=== PATIENT | male | born 2000 | race African-American/Black ===

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

== ENCOUNTER 2020-02-26 21:07 | Emergency (ER) | payer OTHER ==
[2020-02-26 22:32] LABS: ALT (SGPT) 29 U/L (8-55); AST (SGOT) 39 U/L (10-45); Albumin 3.9 g/dL (3.5-5.0); Alkaline Phosphatase 121 U/L (50-130); Anion Gap 16 mmol/L (10-20); BUN (Urea Nitrogen) 10 mg/dL (8.4-21.0); Bilirubin, Total 0.4 mg/dL (0.2-1.2); CK (CPK) 344 U/L (30-200); Calc. Creatinine Clearance 0 mL/min (70-130); Calcium 9.5 mg/dL (7.8-10.44); Carbon Dioxide 24 mmol/L (22-29); Chloride 102 mmol/L (98-107); Estimated GFR-MDRD 90; Globulin 4.3 g/dL (2.4-3.5); Glucose 98 mg/dL (70-105); Potassium 5.3 mmol/L (3.5-5.1); Protein, Total 8.2 g/dL (6.0-8.3); Sodium 137 mmol/L (136-145)
[2020-02-26 23:36] LABS: #Basophils 0.1 thou/uL (0.0-0.2); #Eosinphils 0.3 thou/uL (0.0-0.7); #Lymphocytes 2.2 thou/uL (1.20-3.40); #Monocytes 0.6 thou/uL (0.11-0.59); #Neutrophils 5.1 thou/uL (1.40-6.50); %Basophils 0.7 % (0.0-1.0); %Eosinophils 3.9 % (0.0-10.0); %Lymphocytes 26.5 % (28.0-48.0); Hemoglobin 12.5 g/dL (14.0-18.0); Mean Corpuscular HGB CONC 31.8 g/dL (32.0-36.0); Mean Corpuscular Hemoglobin 25.4 pg (25.0-35.0); Mean Corpuscular Volume 79.9 fL (78.0-98.0); Mean Platelet Volume 8.2 fL (7.4-10.4); Platelet Count 232 thou/uL (130-400); RBC Distribution Width 13.2 % (11.5-14.5); Red Blood Cell (RBC) Count 4.93 mill/uL (4.00-5.20); White Blood Cell (WBC) Count 8.2 thou/uL (4.8-10.8)
--- NOTE | 2020-02-26 23:41 | RAD ---
EXAM: CHEST ONE VIEW HISTORY: Chest pain. COMPARISON: 03/20/2013 FINDINGS: The cardiac silhouette and pulmonary vasculature is within normal limits. Lungs are clear. Patchy par enchymal densities within the right lung on prior exam are not seen on the current study. The osseous structures are intact. IMPRESSION: No acute cardiopulmonary process.
== END 2020-02-27 00:08 | disposition home or self-care (01) ==
LOC: ERS 21:07
DX: R07.89 Other chest pain (principal); E66.9 Obesity, unspecified; I10 Essential (primary) hypertension; E03.9 Hypothyroidism, unspecified; E11.9 Type 2 diabetes mellitus without complications; F90.9 Attention-deficit hyperactivity disorder, unspecified type; Z79.899 Other long term (current) drug therapy; Z79.84 Long term (current) use of oral hypoglycemic drugs
CPT/HCPCS: 71045; 80053; 82550; 84484; 85025; 93005

== ENCOUNTER 2020-03-22 23:10 | Observation (INO) | payer OTHER ==
[2020-03-22 23:49] LABS: #Eosinphils 0.4 thou/uL (0.0-0.7); #Lymphocytes 3.1 thou/uL (1.20-3.40); #Monocytes 0.6 thou/uL (0.11-0.59); #Neutrophils 5.7 thou/uL (1.40-6.50); %Basophils 0.5 % (0.0-1.0); %Eosinophils 4.5 % (0.0-10.0); %Lymphocytes 31.7 % (28.0-48.0); %Monocytes 5.8 % (0.0-4.0); %Neutrophils 57.7 % (31.0-61.0); Hemoglobin 13.5 g/dL (14.0-18.0); Mean Corpuscular Hemoglobin 24.4 pg (25.0-35.0); Mean Corpuscular Volume 78.5 fL (78.0-98.0); Platelet Count 251 thou/uL (130-400); RBC Distribution Width 13.4 % (11.5-14.5); Red Blood Cell (RBC) Count 5.53 mill/uL (4.00-5.20); White Blood Cell (WBC) Count 9.8 thou/uL (4.8-10.8)
[2020-03-22 23:50] LABS: Bilirubin Negative (Negative); Blood, Urine Negative (Negative); Clarity Clear (Clear); Glucose, Urine (Dipstick) Normal (Negative); Ketone, Urine Negative (Negative); Leukocyte Negative Leu/uL (Negative); Nitrite Negative (Negative); Protein, Urine (Dipstick) Negative (Neg-Trace); Specific Gravity, Urine 1.031 (1.002-1.036); Urobilinogen Normal mg/dL (Less than 2); pH, Urine 5.5 (5.0-9.0)
[2020-03-22 23:57] LABS: Amphetamine Detected (NotDetected); Barbiturates Screen Not Detected (NotDetected); Benzodiazepine Screen Not Detected (NotDetected); Cocaine Metabolite Screen Not Detected (NotDetected); Medtox Control Line Valid? VALID (VALID); Medtox Reader # READER 4; Methadone Not Detected (NotDetected); Methamphetamine Not Detected (NotDetected); Opiate Screen Not Detected (NotDetected); Oxycodone Screen Not Detected (NotDetected); Phencyclidine (PCP) Not Detected (NotDetected); THC/Cannabinoid Screen Not Detected (NotDetected); Tricyclic Screen Detected (NotDetected)
[2020-03-23 00:13] LABS: ALT (SGPT) 30 U/L (8-55); AST (SGOT) 25 U/L (5-34); Albumin 4.3 g/dL (3.5-5.0); Alkaline Phosphatase 156 U/L (50-130); Anion Gap 16 mmol/L (10-20); BUN (Urea Nitrogen) 14 mg/dL (8.9-20.6); Bilirubin, Total 0.4 mg/dL (0.2-1.2); CK (CPK) 296 U/L (30-200); Calc. Creatinine Clearance 0 mL/min (70-130); Calcium 10.4 mg/dL (7.8-10.44); Carbon Dioxide 26 mmol/L (22-29); Chloride 98 mmol/L (98-107); Estimated GFR-MDRD Greater than 90; Globulin 4.3 g/dL (2.4-3.5); Glucose 132 mg/dL (70-105); Potassium 3.5 mmol/L (3.5-5.1); Protein, Total 8.6 g/dL (6.0-8.3); Sodium 136 mmol/L (136-145)
[2020-03-23 01:01] LABS: Acetaminophen Less than 6.0 mcg/mL (10.0-30.0); Alcohol Less than 10 mg/dL (Less than 10); Salicylate Less than 8.0 mg/dL (15.0-30.0)
[2020-03-23] MEDS ORDERED: Ondansetron PF 4 MG/2 ML Vial IVP PRN (07:07)
[2020-03-23] MEDS ORDERED: Acetaminophen 325 MG TAB PO PRN (07:07)
[2020-03-23] MEDS ORDERED: Ondansetron ODT 4 MG TAB PO PRN (07:07)
[2020-03-23] MEDS ORDERED: HumaLOG 300 UNITS/3 ML VIAL SC PRN ×2 (07:10)
[2020-03-23] MEDS ORDERED: Dextrose 5% in Water 1,000 ML IV PRN (07:10)
[2020-03-23] MEDS ORDERED: Dextrose 50% Abboject 50 ML SYRINGE SLOW IVP PRN (07:10)
[2020-03-23] MEDS ORDERED: Labetalol HCl 100 MG/20 ML VIAL SLOW IVP PRN (07:12)
[2020-03-23 07:57] LABS: Hemoglobin A1c 6.3 % (4.0-6.0)
--- NOTE | 2020-03-23 08:27 | PDOC.FPRHP ---
- History of Present Illness Chief Complaint: accidental overdose History of Present Illness: Pt is a 20yo M with a PMH of pre diabetes, hypothyrdoism, ADHD, high blood pressure, and Prader Willi Syndrome who presents after accidental overdose. Patient's mom states last night around 1030 pm she went outside to put out the trash. Patient locked the door to the house and preceded to take some of his home medications: Vyvanse (5 tablets), Metformin (? # tablets), HcTz (? # tablets), Levothyroxine (20 tablets). Patient states he wasn't trying to hurt himself. He endorses mild abdominal pain but no other symptoms. Denies ever doing this in the past. - Allergies/Adverse Reactions Allergies Allergy/AdvReac Type Severity Reaction Status Date / Time No Known Allergies Allergy Verified 11/15/19 02:32 - Home Medications Medication Instructions Recorded Confirmed Type Levothyroxine Sodium [Synthroid] 100 mcg PO DAILY 03/16/13 05/29/16 History Lisdexamfetamine Dimesylate 70 mg PO DAILY 05/29/16 05/29/16 History [Vyvanse] QUEtiapine Fumarate [SEROquel XR] 200 mg PO HS 05/29/16 05/29/16 History - History PMHx: hypothyrdoism, prediabetic, Prader Willi, hypertension PSHx: surgery to fix undescended testicles bilaterally at 1year old, "abdominal surgery" in 2011 as per mom for sticking a nail in stomach FHx: non contributory. Dad has hx of diabetes Social: lives at home with parents. Denies drugs, alcohol, tobacco use. - Review of Systems General: denies: fever/chills, fatigue Eyes: denies: vision changes Respiratory: denies: cough, shortness of breath Cardiovascular: denies: chest pain, palpitation, edema Gastrointestinal: reports: abdominal pain. denies: nausea, vomiting, diarrhea Genitourinary: denies: dysuria Skin: denies: rashes, jaundice Musculoskeletal: denies: pain, tenderness Neurological: reports: other (fidgety/restless). denies: numbness, syncope, seizure, weakness Psychological: denies: anxiety, depression - Vital signs BP: 104/80 HR: 122 RR:20 Tmax: 99.1 Pox: 98% on RA Wt: 163.112kg - Physical Exam Constitutional: NAD, awake, alert and oriented HEENT: normocephalic and atraumatic, PERRLA, EOMI, no scleral icterus, grossly normal hearing, MMM Neck: supple Chest: no-tender to palpation Heart: normal S1/S2, pulses present -Heart: tachycardic Lungs: CTAB, no respiratory distress, good air movement Abdomen: soft, non-tender, bowel sounds present Musculoskeletal: normal tone, ROM grossly normal Neurological: no focal deficit, normal sensation -Neurological: patient is very fidgety. Repetitive motions of hands and feet, turning of head and smacking of lips. Skin: no rash/lesions, good turgor Heme/Lymphatic: no unusual bruising or bleeding Psychiatric: normal mood and affect, good judgment and insight, intact recent and remote memory FMR H&P: Results - Labs Result Diagrams: 03/22/20 23:39 03/22/20 23:39 Lab results: WBC 9.8 thou/uL (4.8-10.8) 03/22/20 23:39 Hgb 13.5 g/dL (14.0-18.0) L 03/22/20 23:39 Hct 43.4 % (42.0-52.0) 03/22/20 23:39 MCV 78.5 fL (78.0-98.0) 03/22/20 23:39 Plt Count 251 thou/uL (130-400) 03/22/20 23:39 Neutrophils % 57.7 % (31.0-61.0) 03/22/20 23:39 Sodium 136 mmol/L (136-145) 03/22/20 23:39 Potassium 3.5 mmol/L (3.5-5.1) 03/22/20 23:39 Chloride 98 mmol/L (98-107) 03/22/20 23:39 Carbon Dioxide 26 mmol/L (22-29) 03/22/20 23:39 BUN 14 mg/dL (8.9-20.6) 03/22/20 23:39 Creatinine 0.87 mg/dL (0.7-1.3) 03/22/20 23:39 Glucose 132 mg/dL (70-105) H 03/22/20 23:39 Lactic Acid 1.9 mmol/L (0.5-2.2) 03/23/20 00:22 Calcium 10.4 mg/dL (7.8-10.44) 03/22/20 23:39 Total Bilirubin 0.4 mg/dL (0.2-1.2) 03/22/20 23:39 AST 25 U/L (5-34) 03/22/20 23:39 ALT 30 U/L (8-55) 03/22/20 23:39 Alkaline Phosphatase 156 U/L (50-130) H 03/22/20 23:39 Creatine Kinase 296 U/L (30-200) H 03/22/20 23:39 Serum Total Protein 8.6 g/dL (6.0-8.3) H 03/22/20 23:39 Albumin 4.3 g/dL (3.5-5.0) 03/22/20 23:39 Urine Ketones Negative mg/dL (Negative) 03/22/20 23:27 Urine Blood Negative (Negative) 03/22/20 23:27 Urine Nitrite Negative (Negative) 03/22/20 23:27 Ur Leukocyte Esterase Negative Haritha/uL (Negative) 03/22/20 23:27 - EKG Interpretation EKG: normal SR FMR H&P: A/P - Plan Overdose -patient took excess of home meds Vyvanse, Levothyroxine, HcTz, Levothyroxine, Metformin -patient stable, tachycardic - Labetalol for SBP >190 - MIVF LR @ 190mL/hr -continue to monitor Prader Willi Syndrome -aware Intermittent Explosive Disorder -on home Seroquel, hold -mom desires [facility] consult/referral ADHD -on home Vyvanse, hold HTN -on home HcTz, hold Hypothyroidism -on home Levothyroxine, hold Pre-diabetic -on home Metformin, hold IVF: LR @ 190mL/hr Diet: Heart healthy Code: FULL Dispo: obs Tele, anticipated LOS <48 hours FMR H&P: Upper Level - Plan Date/Time: 03/23/20826 I, [], have evaluated this patient and agree with findings/plan as outlined by internet consultant resident. Pertinent changes/additions are listed here.
[2020-03-23] MEDS ORDERED: Lorazepam 2 MG/ML VIAL SLOW IVP PRN ×2 (09:56→14:15)
[2020-03-23] MEDS: Lactated Ringer's 1,000 ML IV SCH ×3 (10:25→21:07)
[2020-03-23 10:32] VITALS: BMI 65.7
[2020-03-23] MEDS ORDERED: Lactated Ringer's 1,000 ML IV SCH (13:15)
--- NOTE | 2020-03-23 13:23 | PDOC.BPN ---
- Brief Progress Note Subjective: Went to check on patient, and he was endorsing new onset chest pain and abdominal pain. He states the chest pain is in the center of his chest, but doesn't think it radiates. It feels crampy. Palpation does not reproduce that pain. The abdominal pain is diffuse. He seems anxious, and is very fidgety. He states when he stood up to use the restroom before the pain started, he was very dizzy. He denies SOB, CURIEL, vision changes, N/V/diarrhea. Objective: Physical Exam: General: in acute distress. Very fidgety, anxious. Cardiac: tachycardic, no murmur Lungs: CTAB Abdomen: diffusely tender Vitals were WNL with the exception of tachycardia of 133. A/P: 1. Overdose- ordered EKG, troponin, nitro to r/o cardiac pathology. Lipase ordered. Called poison control and they suggested use of Benzos for symptomatic relief from Vyvanse overdose, repeat aspirin and tylenol levels since they don' t peak until after 4 hours of ingestion, TSH panel, repeat CK
[2020-03-23 13:54] LABS: Acetaminophen Less than 6.0 mcg/mL (10.0-30.0); Salicylate Less than 8.0 mg/dL (15.0-30.0)
[2020-03-23] MEDS ORDERED: Lorazepam 2 MG/ML VIAL SLOW IVP SCH (14:00)
[2020-03-23] MEDS: Nitroglycerin 0.4 MG TAB (25 Tab Bottle) SL PRN ×2 (14:11→20:32)
[2020-03-23 14:12] LABS: Free T4 (Free Thyroxine) 3.14 ng/dL (0.70-1.48)
[2020-03-23 14:23] LABS: Thyroid Stimulating Hormone 0.0507 uIU/mL (0.35-4.94)
[2020-03-23 14:23] LABS: SARS-CoV-2 MS2 Positive; SARS-CoV-2 N Gene Negative; SARS-CoV-2 S Gene Negative; SARS-CoV-2 by NAA Not Detected (NotDetected); SARS-CoV-2 orf1ab Negative
--- NOTE | 2020-03-23 14:34 | PDOC.BPN ---
- Brief Progress Note Called by nurse to patient room for concern of seizure. 2 mg IV Ativan given. Patient was very irritable and thrashing around in bed. It does not appear he had a seizure. He has Tardive Dyskinesia like movements. Patient was stating his chest still hurt and endorsed pain over his whole body. Denies SOB, hallucinations, N/V. Vitals were stable with the exception of the HR in the 130s. EKG showed sinus tach no ST elevations. CK 296 > 418 Trop .01 TSH .29> .057 T3, T4 4.87, 3.14 Lipase neg Lactic acid, CMP, ABG pending.
[2020-03-23 16:46] LABS: Actual Bicarbonate (HCO3a) 23.1 mEq/L (22-28); Base Excess (BEa) -0.9 mEq/L (-2.0 to +3.0); CO2 Tension 36.5 mmHg (35.0-45.0); Calcium, Ionized (arterial) 1.25 mmol/L (1.12-1.30); Carboxyhemoglobin (COHb) 0.2 gm% (0.0-3.0); Hemoglobin (Hb) 12.5 g/dL (11.4-15.4); O2 Tension (PaO2), arterial 99.7 mmHg (80.0-100.0); Potassium - ABG Lab 3.62 mmol/L (3.70-5.30); pH, Arterial 7.42 (7.35-7.45)
[2020-03-23 16:51] LABS: Puncture Site RR
[2020-03-23 17:33] LABS: Lactic Acid 3.9 mmol/L (0.5-2.2)
[2020-03-23 17:42] LABS: ALT (SGPT) 25 U/L (8-55); AST (SGOT) 22 U/L (5-34); Albumin 3.7 g/dL (3.5-5.0); Alkaline Phosphatase 101 U/L (50-130); Anion Gap 19 mmol/L (10-20); BUN (Urea Nitrogen) 9 mg/dL (8.9-20.6); Bilirubin, Total 0.5 mg/dL (0.2-1.2); Calc. Creatinine Clearance 324 mL/min (70-130); Calcium 9.9 mg/dL (7.8-10.44); Carbon Dioxide 20 mmol/L (22-29); Chloride 98 mmol/L (98-107); Estimated GFR-MDRD Greater than 90; Globulin 3.4 g/dL (2.4-3.5); Glucose 141 mg/dL (70-105); Potassium 3.7 mmol/L (3.5-5.1); Protein, Total 7.1 g/dL (6.0-8.3); Sodium 133 mmol/L (136-145)
[2020-03-24] MEDS: Lactated Ringer's 1,000 ML IV SCH ×2 (03:01→15:37)
--- NOTE | 2020-03-24 06:06 | PDOC.FM ---
- Subjective Subjective: Patient much better this morning. Sitting up on the side of bed talking with mom. No involuntary movements observed this morning. He is very calm and looks much more comfortably. Denies CP, abdominal pain, CURIEL, N/V. States he slept well. Repeat BP was 151/88. - Objective MAR Reviewed: Yes Vital Signs & Weight: Vital Signs (12 hours) Temp Pulse Resp BP Pulse Ox 03/24/20 03:25 98.1 F 112 H 16 171/87 H 96 03/23/20 23:20 97.8 F 97 16 122/79 100 03/23/20 19:35 97.4 F L 106 H 16 128/78 98 Weight Weight 163.112 kg I&O: 03/22/20 03/23/20 03/24/20 06:59 06:59 06:59 Intake Total 120 Balance 120 Result Diagrams: 03/22/20 23:39 03/23/20 17:00 Phys Exam - Physical Examination Constitutional: NAD HEENT: sclera anicteric Neck: full ROM Respiratory: no wheezing, clear to auscultation bilateral Cardiovascular: RRR (HR at 100, tachy), no significant murmur Gastrointestinal: soft, non-tender Musculoskeletal: no edema Neurological: normal sensation, moves all 4 limbs Psychiatric: normal affect, A&O x 3 Skin: normal turgor Dx/Plan - Plan Plan: Overdose -patient took excess of home meds Vyvanse, Levothyroxine, HcTz, Levothyroxine, Metformin -patient stable - MIVF discontinued -continue to monitor, Ativan 1mg PO PRN Prader Willi Syndrome -aware Intermittent Explosive Disorder -on home Seroquel, hold -mom desires [facility] consult/referral ADHD -on home Vyvanse, hold HTN -on home HcTz, hold Hypothyroidism -on home Levothyroxine, hold Pre-diabetic -on home Metformin, hold IVF: KVO Diet: Heart healthy Code: FULL Dispo: obs Tele, anticipated LOS <48 hours
[2020-03-24] MEDS ORDERED: Lorazepam 2 MG/ML VIAL SLOW IVP SCH (06:30)
[2020-03-24] MEDS ORDERED: Hydrochlorothiazide 25 MG TAB PO SCH (09:45)
[2020-03-24 11:46] VITALS: BP 167/108; TEMP 98.8
--- NOTE | 2020-03-24 14:48 | PRG ---
DATE OF SERVICE: 03/24/2020 Mr. Hollingsworth has much improved this morning. He is awake, alert, and appears to be in fine spirits. He is showing and demonstrating no signs of agitation. His heart rate is approximately 100. His blood pressure is 150 systolic. From a medical standpoint, I believe he is cleared to go home. He will follow with PCP and hopefully MR. He has been instructed to not resume any of his medications for 1 week, at which time he will be seen by his PCP for followup. At that time, I think it would be okay to resume his medications. Job ID: [id number]
[2020-03-25] MEDS ORDERED: Non-Formulary Item 1 EACH (Hydrochlorothiazide [Hydrochlorothiazide] 50 MG) PO SCH (09:00)
--- NOTE | 2020-03-25 17:37 | DIS ---
DATE OF ADMISSION: 03/23/2020 DATE OF DISCHARGE: 03/24/2020 RESIDENT: Roberta Christianson MD, PGY-1 ADMITTING ATTENDING: Jose R Ritchie MD DISCHARGING ATTENDING: Jose R Ritchie MD CONSULTS: [facility] PROCEDURES: EKG, which showed sinus tachycardia without any ST elevations or depressions. PRIMARY DIAGNOSIS: Accidental overdose. SECONDARY DIAGNOSES: 1. Prader-Willi syndrome. 2. Intermittent explosive disorder. 3. Attention deficit hyperactivity disorder. 4. Hypertension. 5. Hypothyroidism. 6. Prediabetes. DISCHARGE MEDICATIONS: 1. Hydrochlorothiazide 25 mg p.o. daily. 2. Synthroid 100 mcg p.o. daily. 3. Vyvanse 70 mg p.o. daily. 4. Metformin 500 mg p.o. daily. 5. Quetiapine fumarate 400 mg p.o. at night time. DISCONTINUED MEDICATION: Hydrochlorothiazide 50 mg. HISTORY OF PRESENT ILLNESS/HOSPITAL COURSE: The patient is a 20-year-old male with past medical history of Prader-Willi syndrome, prediabetes, hypothyroidism, ADHD , and high blood pressure, who presented after an accidental overdose. The patient's mom states that on the night of 03/22 on 10:30 p.m., she went outside to take out the trash and patient locked the door to the house and proceeded to take some of his home medications including five tablets of Vyvanse, 20 tablets of levothyroxine , and an unknown amount of metformin and hydrochlorothiazide. The patient states he was not trying to hurt himself. On admission, he endorsed mild abdominal pain and no other symptoms. He has never had any episodes like this in the past. On admission, the patient was just slightly tachycardic at 122. The patient called the Medical Team up to his room about 8 hours after admission, complaining of chest pain and abdominal pain. He was unable to really describe the pain, but he did look a little bit diaphoretic. An EKG was ordered and showed a sinus tachycardia without any ST changes. Nitroglycerin was also ordered at that time and so were troponins, which were negative. At that time, he seemed to be stable. Vitals were normal with the exception of tachycardia to 133. About 30 minutes later, Medical Team was called back as nurse thought the patient had a seizure. Upon going to check on the patient, 2 mg of Ativan were given, but it seemed as if the patient was just very irritable and thrashing around in the bed. It did not appear as if he had had a seizure. He had tardive dyskinesia like movements. At this time, he said his chest did hurt and he had pain over his whole body. He did not have shortness of breath, hallucinations, nausea, vomiting, diarrhea at this time. His vitals were stable with the exception of again tachycardia in the 130s. At the time of this episode, CK was at 418, which was increased from admission CK at 296. TSH had gone from 0.29 to 0.057, T3 was 4.87, and T4 was 3.14. Lipase was negative. ABG was not impressive. At this time, Ativan 1 mg q.2 p.r.n. was added to the patient's medical regimen and we were not called back to the patient's room. According to the patient's mom, he did better overnight and his vitals remained stable with the exception of tachycardia. The next day after admission, the patient was doing much better. He is very calm, sitting up at the edge of the bed asking to go home. His heart rate was 100. He did have mildly elevated blood pressure readings of 171/87, 179/101, and 151/88. Of note, they were using a small cuff and taking radial artery readings, which may skew these results. Hydrochlorothiazide 25 mg was started, but again the patient was very calm and was not having any thrashing movements and he was able to converse with us versus his presentation the day before. [facility] came to see the patient and thought he was not a harm to himself and a safety plan was made. DISPOSITION: Stable. DISCHARGE INSTRUCTIONS: 1. Location: Home. 2. Diet: Diabetic diet and heart-healthy diet. 3. Activity: As tolerated. 4. Followup: Follow up with PCP, Dr. Hernandez in 10 days Job ID: [id number]
== END 2020-03-24 16:50 | disposition home or self-care (01) ==
LOC: ERS 23:10 → ERHOLD 03-23 06:44 → INTOOBSV 03-23 06:44 → 2SE 03-23 08:10
PROVIDERS: ADMIT Student in an Organized Health Care Education/Training Program; ATTEND Student in an Organized Health Care Education/Training Program
DX: T43.621A Poisoning by amphetamines, accidental (unintentional), initial encounter (principal); T38.1X1A Poisoning by thyroid hormones and substitutes, accidental (unintentional), initial encounter; T50.2X1A Poisoning by carbonic-anhydrase inhibitors, benzothiadiazides and other diuretics, accidental (unintentional), initial encounter; T38.3X1A Poisoning by insulin and oral hypoglycemic [antidiabetic] drugs, accidental (unintentional), initial encounter; R00.0 Tachycardia, unspecified; Q87.11 Prader-Willi syndrome; F63.81 Intermittent explosive disorder; F90.9 Attention-deficit hyperactivity disorder, unspecified type; I10 Essential (primary) hypertension; E03.9 Hypothyroidism, unspecified; R73.03 Prediabetes; R07.9 Chest pain, unspecified; R10.9 Unspecified abdominal pain; Z79.84 Long term (current) use of oral hypoglycemic drugs; Z79.899 Other long term (current) drug therapy; Z20.828 Contact with and (suspected) exposure to other viral communicable diseases
CPT/HCPCS: 36415; 36416; 80053; 80306; 80307; 81003; 82550; 82805; 83036; 83605; 83690; 84439; 84443; 84481; 84484; 85025; 87635; 93005; 93010; 96360; 96361; 96374; 96376; G0378; J2060; U0003

== ENCOUNTER 2021-02-07 16:33 | Inpatient (IN) | payer OTHER ==
[2021-02-07] MEDS ORDERED: Succinylcholine 200 MG/10 ml SYRINGE FS ONE (16:55)
[2021-02-07] MEDS ORDERED: Fentanyl CADD 100 ML IV SCH ×2 (17:45→22:15)
[2021-02-07 18:02] LABS: Actual Bicarbonate (HCO3a) 27.7 mEq/L (22-28); Analyzer IN Cardio ER; Base Excess (BEa) 4.3 mEq/L (-2.0 to +3.0); CO2 Tension 37.1 mmHg (35.0-45.0); Calcium, Ionized (arterial) 1.18 mmol/L (1.12-1.30); Carboxyhemoglobin (COHb) 0.3 gm% (0.0-3.0); Hemoglobin (Hb) 11.9 g/dL (11.4-15.4); O2 Tension (PaO2), arterial 442.7 mmHg (80.0-100.0); Potassium - ABG Lab 3.96 mmol/L (3.70-5.30); pH, Arterial 7.49 (7.35-7.45)
[2021-02-07 18:06] LABS: Bacteria/HPF None Seen HPF (None Seen); Bilirubin Negative (Negative); Blood, Urine Negative (Negative); Clarity Clear (Clear); Glucose, Urine (Dipstick) Normal (Negative); Ketone, Urine Negative (Negative); Leukocyte Negative Leu/uL (Negative); Nitrite Negative (Negative); Protein, Urine (Dipstick) 30 mg/dL (Neg-Trace); RBC/HPF 0-3 HPF (0-3); Specific Gravity, Urine 1.028 (1.002-1.036); Squamous Epithelial 0-3 HPF (0-3); WBC/HPF 0-3 HPF (0-3)
[2021-02-07 18:11] LABS: Amphetamine Detected (NotDetected); Barbiturates Screen Not Detected (NotDetected); Benzodiazepine Screen Not Detected (NotDetected); Cocaine Metabolite Screen Not Detected (NotDetected); Medtox Control Line Valid? VALID (VALID); Medtox Reader # READER 4; Methadone Not Detected (NotDetected); Methamphetamine Not Detected (NotDetected); Opiate Screen Not Detected (NotDetected); Oxycodone Screen Not Detected (NotDetected); Phencyclidine (PCP) Not Detected (NotDetected); THC/Cannabinoid Screen Not Detected (NotDetected); Tricyclic Screen Detected (NotDetected)
[2021-02-07 18:24] LABS: Puncture Site LRA
[2021-02-07 18:25] LABS: ALV-art Gradient 81.325 mmHg (0-20)
[2021-02-07 18:28] LABS: #Eosinphils 0.4 thou/uL (0.0-0.7); #Lymphocytes 2.6 thou/uL (1.20-3.40); #Monocytes 0.6 thou/uL (0.11-0.59); #Neutrophils 6.5 thou/uL (1.40-6.50); %Basophils 0.3 % (0.0-1.0); %Eosinophils 3.6 % (0.0-10.0); %Lymphocytes 25.5 % (28.0-48.0); %Neutrophils 64.7 % (31.0-61.0); Hemoglobin 11.7 g/dL (14.0-18.0); Mean Corpuscular HGB CONC 31.1 g/dL (32.0-36.0); Mean Corpuscular Volume 77.2 fL (78.0-98.0); Mean Platelet Volume 9.3 fL (7.4-10.4); Platelet Count 246 thou/uL (130-400); RBC Distribution Width 14.1 % (11.5-14.5); Red Blood Cell (RBC) Count 4.85 mill/uL (4.00-5.20)
[2021-02-07 18:33] LABS: ALT (SGPT) 18 U/L (8-55); AST (SGOT) 21 U/L (5-34); Acetaminophen Less than 6.0 mcg/mL (10.0-30.0); Albumin 3.6 g/dL (3.5-5.0); Alcohol Less than 10 mg/dL (Less than 10); Alkaline Phosphatase 141 U/L (50-130); Anion Gap 17 mmol/L (10-20); BUN (Urea Nitrogen) 17 mg/dL (8.9-20.6); Bilirubin, Total 0.4 mg/dL (0.2-1.2); Calc. Creatinine Clearance 0 mL/min (70-130); Calcium 9.6 mg/dL (7.8-10.44); Carbon Dioxide 25 mmol/L (22-29); Chloride 98 mmol/L (98-107); Globulin 4.3 g/dL (2.4-3.5); Glucose 208 mg/dL (70-105); Potassium 3.9 mmol/L (3.5-5.1); Protein, Total 7.9 g/dL (6.0-8.3); Salicylate Less than 8.0 mg/dL (15.0-30.0); Sodium 136 mmol/L (136-145)
[2021-02-07 19:26] LABS: SARS-CoV-2 NAA Rapid Test Not Detected (NotDetected)
[2021-02-07] MEDS ORDERED: Electrolyte Replacement Protocol 1 EACH IVPB PRN (20:11)
[2021-02-07] MEDS ORDERED: Ventilator Sedation Protocol 1 EACH FS SCH (20:15)
[2021-02-07] MEDS ORDERED: DISCONTINUE PREVIOUS NARCOTIC PAIN MEDICATIONS AND BENZODIAZEPINES FS SCH (22:15)
[2021-02-07] MEDS ORDERED: Propofol 1,000 MG/100 ML VIAL IV PRN (22:15)
[2021-02-07] MEDS ORDERED: Propofol BOLUS 1,000 MG/100 ML VIAL IV PRN (22:15)
[2021-02-07] MEDS ORDERED: Lorazepam 2 MG/ML VIAL SLOW IVP PRN (22:15)
[2021-02-07] MEDS ORDERED: Fentanyl BOLUS 250 ML IVPB PRN (22:15)
[2021-02-07] MEDS ORDERED: Morphine 2 MG/ML VIAL SLOW IVP PRN (22:15)
[2021-02-07 23:21] LABS: Anion Gap 16 mmol/L (10-20); BUN (Urea Nitrogen) 15 mg/dL (8.9-20.6); Calc. Creatinine Clearance 0 mL/min (70-130); Carbon Dioxide 23 mmol/L (22-29); Chloride 101 mmol/L (98-107); Glucose 197 mg/dL (70-105); Potassium 3.4 mmol/L (3.5-5.1); Sodium 137 mmol/L (136-145)
[2021-02-08 00:20] LABS: INR-International Normal Ratio 1.2; Prothrombin Time 14.8 sec (12.0-14.7)
[2021-02-08] MEDS: Lactated Ringer's 1,000 ML IV SCH ×6 (00:45→20:27)
[2021-02-08] MEDS: Potassium Chloride 20 MEQ in Premix Bag 1 BAG IVPB SCH ×2 (01:40→04:07)
[2021-02-08 07:58] LABS: Base Excess (BEa) 1.5 mEq/L (-2.0 to +3.0); CO2 Tension 31.3 mmHg (35.0-45.0); Calcium, Ionized (arterial) 1.21 mmol/L (1.12-1.30); Carboxyhemoglobin (COHb) 0.1 gm% (0.0-3.0); Hemoglobin (Hb) 11.9 g/dL (11.4-15.4); O2 Tension (PaO2), arterial 172.5 mmHg (80.0-100.0); Potassium - ABG Lab 4.12 mmol/L (3.70-5.30)
[2021-02-08 08:02] LABS: Puncture Site LRA
[2021-02-08 08:03] LABS: ALV-art Gradient 73.575 mmHg (0-20)
[2021-02-08 08:20] LABS: #Eosinphils 0.2 thou/uL (0.0-0.7); #Lymphocytes 1.4 thou/uL (1.20-3.40); #Monocytes 0.6 thou/uL (0.11-0.59); #Neutrophils 7.7 thou/uL (1.40-6.50); %Basophils 0.2 % (0.0-1.0); %Eosinophils 2.5 % (0.0-10.0); %Lymphocytes 14.2 % (28.0-48.0); %Monocytes 6.2 % (0.0-4.0); %Neutrophils 76.9 % (31.0-61.0); Hemoglobin 11.4 g/dL (14.0-18.0); Mean Corpuscular HGB CONC 31.4 g/dL (32.0-36.0); Mean Corpuscular Hemoglobin 23.7 pg (25.0-35.0); Mean Corpuscular Volume 75.4 fL (78.0-98.0); Platelet Count 220 thou/uL (130-400)
[2021-02-08] MEDS: Enoxaparin Sodium 40 MG/0.4 ML SYRINGE SC SCH (08:32)
[2021-02-08 08:38] LABS: ALT (SGPT) 15 U/L (8-55); AST (SGOT) 16 U/L (5-34); Albumin 2.9 g/dL (3.5-5.0); Alkaline Phosphatase 97 U/L (50-130); Anion Gap 16 mmol/L (10-20); BUN (Urea Nitrogen) 14 mg/dL (8.9-20.6); Bilirubin, Total 0.9 mg/dL (0.2-1.2); Calc. Creatinine Clearance 357 mL/min (70-130); Calcium 9.1 mg/dL (7.8-10.44); Carbon Dioxide 19 mmol/L (22-29); Chloride 107 mmol/L (98-107); Globulin 3.3 g/dL (2.4-3.5); Glucose 205 mg/dL (70-105); Potassium 4.6 mmol/L (3.5-5.1); Protein, Total 6.2 g/dL (6.0-8.3); Sodium 137 mmol/L (136-145)
[2021-02-08] MEDS ORDERED: Sodium Chloride 0.9% 500 ML IV SCH ×2 (09:15→09:45)
[2021-02-08] MEDS ORDERED: Norepinephrine 8 MG/0.9% NS 0 ML ONE (09:45)
[2021-02-08] MEDS ORDERED: Naloxone HCl 0.4 mg/ml Vial IV SCH (11:00)
[2021-02-08] MEDS ORDERED: Sodium Chloride 0.9% 1,000 ML IV SCH (11:00)
[2021-02-08 11:09] LABS: Potassium 4.4 mmol/L (3.5-5.1)
[2021-02-08] MEDS ORDERED: Naloxone HCl 0.4 mg/ml Vial ONE (11:24)
[2021-02-08] MEDS ORDERED: Naloxone HCl 0.4 mg/ml Vial IVP SCH (11:30)
[2021-02-08] MEDS ORDERED: Norepinephrine 8 MG/0.9% NS 8 MG in Premix Bag 1 BAG IVPB SCH (12:15)
[2021-02-08] MEDS ORDERED: Dextrose 5% in Water 1,000 ML IV PRN (12:30)
[2021-02-08] MEDS ORDERED: HumaLOG 300 UNITS/3 ML VIAL SC PRN (12:30)
[2021-02-08] MEDS ORDERED: Dextrose 50% Abboject 50 ML SYRINGE SLOW IVP PRN (12:30)
[2021-02-08] MEDS: HumaLOG 300 UNITS/3 ML VIAL SC PRN (12:51)
[2021-02-08 13:33] LABS: Hemoglobin A1c 6.8 % (4.0-6.0)
[2021-02-09] MEDS: Lactated Ringer's 1,000 ML IV SCH ×2 (02:01→16:35)
[2021-02-09] MEDS ORDERED: Lactated Ringer's 1,000 ML IV SCH (08:38)
[2021-02-09] MEDS: Enoxaparin Sodium 40 MG/0.4 ML SYRINGE SC SCH (09:47)
[2021-02-09] MEDS: Famotidine 20 MG TAB PO SCH ×2 (09:56→21:18)
[2021-02-09 10:00] LABS: Anion Gap 16 mmol/L (10-20); BUN (Urea Nitrogen) 13 mg/dL (8.9-20.6); Calc. Creatinine Clearance 312 mL/min (70-130); Calcium 9.8 mg/dL (7.8-10.44); Carbon Dioxide 24 mmol/L (22-29); Chloride 104 mmol/L (98-107); Glucose 116 mg/dL (70-105); Potassium 4.2 mmol/L (3.5-5.1); Sodium 140 mmol/L (136-145)
[2021-02-09 10:01] LABS: Hemoglobin 11.6 g/dL (14.0-18.0); Mean Corpuscular HGB CONC 32.6 g/dL (32.0-36.0); Mean Corpuscular Hemoglobin 24.8 pg (25.0-35.0); Mean Corpuscular Volume 76.1 fL (78.0-98.0); Mean Platelet Volume 8.5 fL (7.4-10.4); Platelet Count 235 thou/uL (130-400); RBC Distribution Width 14.4 % (11.5-14.5); Red Blood Cell (RBC) Count 4.66 mill/uL (4.00-5.20); White Blood Cell (WBC) Count 6.4 thou/uL (4.8-10.8)
[2021-02-09 10:06] LABS: Band 41 % (5-11); Eosinophils 6 % (0-10); Lymphocytes 11 % (28-48); MDiff Complete? YES; Microcytosis SLIGHT = 6-15 cells (100X) (0-5/hpf); Monocytes 11 % (0-4); Neutrophil 31 % (31-61); Platelet Morphology Comment Appears Adequate
[2021-02-09] MEDS ORDERED: Furosemide 20 MG/2 ML VIAL SLOW IVP SCH ×2 (11:30→16:45)
[2021-02-10] MEDS: Lactated Ringer's 1,000 ML IV SCH ×3 (01:47→15:23)
[2021-02-10 04:25] LABS: Hemoglobin 10.5 g/dL (14.0-18.0); Mean Corpuscular HGB CONC 32.9 g/dL (32.0-36.0); Mean Platelet Volume 8.9 fL (7.4-10.4); Platelet Count 218 thou/uL (130-400); RBC Distribution Width 14.4 % (11.5-14.5); Red Blood Cell (RBC) Count 4.19 mill/uL (4.00-5.20); White Blood Cell (WBC) Count 6.1 thou/uL (4.8-10.8)
[2021-02-10 04:41] LABS: ALT (SGPT) 14 U/L (8-55); AST (SGOT) 16 U/L (5-34); Albumin 3.1 g/dL (3.5-5.0); Alkaline Phosphatase 95 U/L (50-130); Anion Gap 13 mmol/L (10-20); BUN (Urea Nitrogen) 19 mg/dL (8.9-20.6); Bilirubin, Total 0.6 mg/dL (0.2-1.2); Calc. Creatinine Clearance 261 mL/min (70-130); Calcium 9.4 mg/dL (7.8-10.44); Carbon Dioxide 26 mmol/L (22-29); Chloride 104 mmol/L (98-107); Globulin 3.7 g/dL (2.4-3.5); Glucose 122 mg/dL (70-105); Potassium 3.5 mmol/L (3.5-5.1); Protein, Total 6.8 g/dL (6.0-8.3); Sodium 139 mmol/L (136-145)
[2021-02-10 05:55] LABS: Band 31 % (5-11); Eosinophils 4 % (0-10); Lymphocytes 20 % (28-48); MDiff Complete? YES; Monocytes 18 % (0-4); Myelocyte 2 % (0-0); Neutrophil 24 % (31-61)
[2021-02-10] MEDS: cefTRIAXone\\ROCEPHIN 2 GM in Sodium Chloride 0.9% 100 ML IVPB SCH (07:41)
[2021-02-10 08:02] LABS: Actual Bicarbonate (HCO3a) 24.1 mEq/L (22-28); Base Excess (BEa) 0.2 mEq/L (-2.0 to +3.0); CO2 Tension 36.5 mmHg (35.0-45.0); Calcium, Ionized (arterial) 1.18 mmol/L (1.12-1.30); Carboxyhemoglobin (COHb) 0.3 gm% (0.0-3.0); Hemoglobin (Hb) 12.3 g/dL (11.4-15.4); O2 Tension (PaO2), arterial 91.2 mmHg (80.0-100.0); Potassium - ABG Lab 3.43 mmol/L (3.70-5.30); pH, Arterial 7.44 (7.35-7.45)
[2021-02-10 08:22] LABS: Puncture Site RRA
[2021-02-10 08:23] LABS: ALV-art Gradient 77.075 mmHg (0-20)
[2021-02-10] MEDS: Potassium Chloride 20 MEQ in Premix Bag 1 BAG IVPB SCH ×2 (08:58→11:52)
[2021-02-10] MEDS ORDERED: Doxycycline 100 MG CAP PER TUBE SCH (09:00)
[2021-02-10] MEDS: Enoxaparin Sodium 40 MG/0.4 ML SYRINGE SC SCH (09:03)
[2021-02-10] MEDS: Famotidine 20 MG TAB PO SCH (09:03)
[2021-02-10] MEDS ORDERED: Dexamethasone 4 mg/ml Vial SLOW IVP SCH (10:00)
[2021-02-10] MEDS: Dexamethasone 4 mg/ml Vial SLOW IVP SCH ×2 (12:47→17:38)
[2021-02-10] MEDS ORDERED: Metoclopramide HCl 10 MG/2 ML VIAL IVP SCH (14:00)
[2021-02-10] MEDS ORDERED: Naloxone HCl 0.4 mg/ml Vial IV ONE (15:02)
[2021-02-10] MEDS ORDERED: Doxycycline 100 MG in Syringe 0 ML IVPB SCH (21:00)
[2021-02-11] MEDS: Dexamethasone 4 mg/ml Vial SLOW IVP SCH ×2 (02:36→06:08)
[2021-02-11] MEDS: Lactated Ringer's 1,000 ML IV SCH ×2 (04:11→16:47)
[2021-02-11 04:22] LABS: #Lymphocytes 1.1 thou/uL (1.20-3.40); #Monocytes 0.2 thou/uL (0.11-0.59); #Neutrophils 6.1 thou/uL (1.40-6.50); %Basophils 0.1 % (0.0-1.0); %Eosinophils 0.2 % (0.0-10.0); %Lymphocytes 14.6 % (28.0-48.0); %Monocytes 3.2 % (0.0-4.0); %Neutrophils 81.8 % (31.0-61.0); Hemoglobin 10.9 g/dL (14.0-18.0); Mean Corpuscular Hemoglobin 26.2 pg (25.0-35.0); Mean Platelet Volume 8.7 fL (7.4-10.4); Platelet Count 246 thou/uL (130-400); Red Blood Cell (RBC) Count 4.15 mill/uL (4.00-5.20); White Blood Cell (WBC) Count 7.5 thou/uL (4.8-10.8)
[2021-02-11 04:46] LABS: ALT (SGPT) 15 U/L (8-55); AST (SGOT) 17 U/L (5-34); Albumin 3.2 g/dL (3.5-5.0); Alkaline Phosphatase 90 U/L (50-130); Anion Gap 16 mmol/L (10-20); BUN (Urea Nitrogen) 17 mg/dL (8.9-20.6); Bilirubin, Total 0.2 mg/dL (0.2-1.2); Calc. Creatinine Clearance 350 mL/min (70-130); Calcium 9.6 mg/dL (7.8-10.44); Carbon Dioxide 24 mmol/L (22-29); Chloride 102 mmol/L (98-107); Globulin 4.1 g/dL (2.4-3.5); Glucose 180 mg/dL (70-105); Potassium 4.1 mmol/L (3.5-5.1); Protein, Total 7.3 g/dL (6.0-8.3); Sodium 138 mmol/L (136-145)
[2021-02-11] MEDS: HumaLOG 300 UNITS/3 ML VIAL SC PRN ×3 (04:55→18:52)
[2021-02-11] MEDS: cefTRIAXone\\ROCEPHIN 2 GM in Sodium Chloride 0.9% 100 ML IVPB SCH (06:08)
[2021-02-11] MEDS ORDERED: Docusate 100 MG CAP PO SCH (06:45)
[2021-02-11] MEDS: Ferrous Sulfate 325 MG TAB PO SCH ×2 (08:38→09:51)
[2021-02-11] MEDS: Ascorbic Acid 500 mg Chewable Tablet PO SCH ×2 (08:39→09:50)
[2021-02-11] MEDS ORDERED: Levothyroxine Sodium 88 MCG TAB PO SCH (09:20)
[2021-02-11] MEDS: Enoxaparin Sodium 40 MG/0.4 ML SYRINGE SC SCH (09:24)
[2021-02-11] MEDS: metFORMIN XR 500 MG TAB PO SCH (09:50)
[2021-02-11] MEDS ORDERED: VANCOMYCIN 2 GRAM/400 ML BAG 2 GM in Premix Bag 1 BAG IVPB SCH (11:30)
[2021-02-11] MEDS ORDERED: Levothyroxine Sodium 100 MCG TAB PO SCH (14:45)
[2021-02-11] MEDS ORDERED: Doxycycline Hyclate 100 MG in Sodium Chloride 0.9% 250 ML 250 ML IVPB SCH (21:00)
[2021-02-11] MEDS: Vancomycin 1.5 GRAM/300 ML BAG 1.5 GM in Premix Bag 1 BAG IVPB SCH (21:32)
[2021-02-12 03:56] LABS: ALT (SGPT) 14 U/L (8-55); AST (SGOT) 13 U/L (5-34); Albumin 3.1 g/dL (3.5-5.0); Alkaline Phosphatase 82 U/L (50-130); Anion Gap 14 mmol/L (10-20); BUN (Urea Nitrogen) 17 mg/dL (8.9-20.6); Bilirubin, Total Less than 0.2 mg/dL (0.2-1.2); Calc. Creatinine Clearance 381 mL/min (70-130); Calcium 9.3 mg/dL (7.8-10.44); Carbon Dioxide 21 mmol/L (22-29); Chloride 103 mmol/L (98-107); Globulin 3.8 g/dL (2.4-3.5); Glucose 190 mg/dL (70-105); Protein, Total 6.9 g/dL (6.0-8.3); Sodium 134 mmol/L (136-145)
[2021-02-12 04:01] LABS: Band 24 % (5-11); Hemoglobin 10.5 g/dL (14.0-18.0); Lymphocytes 18 % (28-48); MDiff Complete? YES; Mean Corpuscular HGB CONC 32.6 g/dL (32.0-36.0); Mean Corpuscular Hemoglobin 24.8 pg (25.0-35.0); Mean Corpuscular Volume 76.1 fL (78.0-98.0); Mean Platelet Volume 8.5 fL (7.4-10.4); Monocytes 9 % (0-4); Neutrophil 49 % (31-61); Platelet Count 281 thou/uL (130-400); RBC Distribution Width 14.3 % (11.5-14.5); Red Blood Cell (RBC) Count 4.23 mill/uL (4.00-5.20); White Blood Cell (WBC) Count 12.1 thou/uL (4.8-10.8)
[2021-02-12] MEDS: Vancomycin 1.5 GRAM/300 ML BAG 1.5 GM in Premix Bag 1 BAG IVPB SCH (04:21)
[2021-02-12] MEDS: cefTRIAXone\\ROCEPHIN 2 GM in Sodium Chloride 0.9% 100 ML IVPB SCH (05:20)
[2021-02-12] MEDS: Levothyroxine Sodium 100 MCG TAB PO SCH (05:21)
[2021-02-12] MEDS ORDERED: Levothyroxine Sodium 100 MCG TAB PO SCH (06:00)
[2021-02-12] MEDS ORDERED: metFORMIN XR 500 MG TAB PO SCH (09:00)
[2021-02-12] MEDS ORDERED: LISDEXAMFETAMINE DIMESYLATE 70 MG PO SCH (09:00)
[2021-02-12] MEDS ORDERED: Levothyroxine Sodium 88 MCG TAB PO SCH (09:00)
[2021-02-12] MEDS: Enoxaparin Sodium 40 MG/0.4 ML SYRINGE SC SCH (09:53)
[2021-02-12] MEDS: metFORMIN XR 500 MG TAB PO SCH (09:53)
[2021-02-12] MEDS: Ferrous Sulfate 325 MG TAB PO SCH (09:53)
[2021-02-12] MEDS: Ascorbic Acid 500 mg Chewable Tablet PO SCH (09:53)
[2021-02-12 10:26] VITALS: BMI 70.3
[2021-02-12 11:54] LABS: Vancomycin, Trough 25.1 ug/mL
[2021-02-12] MEDS ORDERED: Hydrochlorothiazide 25 MG TAB PO SCH (15:15)
[2021-02-13] MEDS: Levothyroxine Sodium 100 MCG TAB PO SCH (06:20)
[2021-02-13] MEDS: metFORMIN XR 500 MG TAB PO SCH (08:32)
[2021-02-13] MEDS: Ferrous Sulfate 325 MG TAB PO SCH (08:33)
[2021-02-13] MEDS: Ascorbic Acid 500 mg Chewable Tablet PO SCH (08:33)
[2021-02-13] MEDS: Enoxaparin Sodium 40 MG/0.4 ML SYRINGE SC SCH (08:33)
[2021-02-13] MEDS ORDERED: Hydrochlorothiazide 25 MG TAB PO SCH (09:00)
[2021-02-13] MEDS ORDERED: Cefdinir 300 MG CAP PO SCH (09:00)
[2021-02-13 09:03] LABS: Hemoglobin 11.5 g/dL (14.0-18.0); Mean Corpuscular HGB CONC 31.7 g/dL (32.0-36.0); Mean Corpuscular Hemoglobin 24.3 pg (25.0-35.0); Mean Corpuscular Volume 76.5 fL (78.0-98.0); Mean Platelet Volume 8.3 fL (7.4-10.4); Platelet Count 271 thou/uL (130-400); RBC Distribution Width 14.6 % (11.5-14.5); Red Blood Cell (RBC) Count 4.72 mill/uL (4.00-5.20); White Blood Cell (WBC) Count 13.3 thou/uL (4.8-10.8)
[2021-02-13 09:29] LABS: Band 12 % (5-11); Hypochromia SLIGHT = 6-15 cells (100X) (0-5/hpf); Lymphocytes 15 % (28-48); MDiff Complete? YES; Metamyelocyte 2 % (0-0); Microcytosis SLIGHT = 6-15 cells (100X) (0-5/hpf); Monocytes 10 % (0-4); Myelocyte 2 % (0-0); Neutrophil 59 % (31-61); Nucleated RBC 1 % (0); Platelet Morphology Comment Appears Adequate; Polychromasia SLIGHT = 2-3 cells (100X) (0-2/hpf); Vacuoles SLIGHT
[2021-02-13 09:39] LABS: ALT (SGPT) 13 U/L (8-55); AST (SGOT) 14 U/L (5-34); Alkaline Phosphatase 75 U/L (50-130); Anion Gap 16 mmol/L (10-20); BUN (Urea Nitrogen) 17 mg/dL (8.9-20.6); Bilirubin, Total 0.2 mg/dL (0.2-1.2); Calc. Creatinine Clearance 415 mL/min (70-130); Calcium 8.9 mg/dL (7.8-10.44); Carbon Dioxide 20 mmol/L (22-29); Chloride 103 mmol/L (98-107); Globulin 3.5 g/dL (2.4-3.5); Glucose 110 mg/dL (70-105); Potassium 3.8 mmol/L (3.5-5.1); Protein, Total 6.5 g/dL (6.0-8.3); Sodium 135 mmol/L (136-145)
[2021-02-13 16:25] VITALS: BP 131/87; TEMP 98.7
== END 2021-02-13 16:57 | disposition home or self-care (01) | DRG 917 ==
LOC: ERS 16:33 → CCU 19:48 → IMCU/EMU 02-11 16:29 → T4-B 02-12 16:17
PROVIDERS: ADMIT Family Medicine; ATTEND Family Medicine
PROC: 0DH67UZ Insertion of Feeding Device into Stomach, Via Natural or Artificial Opening (ICD-10-PCS; 2021-02-07)
PROC: 0BH17EZ Insertion of Endotracheal Airway into Trachea, Via Natural or Artificial Opening (ICD-10-PCS; 2021-02-07)
PROC: 5A1945Z Respiratory Ventilation, 24-96 Consecutive Hours (ICD-10-PCS; 2021-02-07)
PROC: 3E043XZ Introduction of Vasopressor into Central Vein, Percutaneous Approach (ICD-10-PCS; principal; 2021-02-08)
PROC: 06HY33Z Insertion of Infusion Device into Lower Vein, Percutaneous Approach (ICD-10-PCS; 2021-02-08)
DX: T46.5X2A Poisoning by other antihypertensive drugs, intentional self-harm, initial encounter (principal); J96.01 Acute respiratory failure with hypoxia; J15.211 Pneumonia due to Methicillin susceptible Staphylococcus aureus; J69.0 Pneumonitis due to inhalation of food and vomit; G92 Toxic encephalopathy; J81.1 Chronic pulmonary edema; Q87.11 Prader-Willi syndrome; Z68.45 Body mass index [BMI] 70 or greater, adult; Z16.29 Resistance to other single specified antibiotic; Z20.822 Contact with and (suspected) exposure to COVID-19; T43.622A Poisoning by amphetamines, intentional self-harm, initial encounter; T43.592A Poisoning by other antipsychotics and neuroleptics, intentional self-harm, initial encounter; T50.2X2A Poisoning by carbonic-anhydrase inhibitors, benzothiadiazides and other diuretics, intentional self-harm, initial encounter; I95.9 Hypotension, unspecified; F79 Unspecified intellectual disabilities; F25.0 Schizoaffective disorder, bipolar type; I10 Essential (primary) hypertension; E11.9 Type 2 diabetes mellitus without complications; F90.9 Attention-deficit hyperactivity disorder, unspecified type; F63.81 Intermittent explosive disorder; F31.9 Bipolar disorder, unspecified; E03.9 Hypothyroidism, unspecified; R00.1 Bradycardia, unspecified; Z79.84 Long term (current) use of oral hypoglycemic drugs; Z79.890 Hormone replacement therapy; Z79.899 Other long term (current) drug therapy; Z82.49 Family history of ischemic heart disease and other diseases of the circulatory system
CPT/HCPCS: 0240U; 36415; 36416; 36600; 71045; 80048; 80053; 80202; 80306; 80307; 81003; 81015; 82533; 82550; 82728; 82805; 83036; 83540; 83880; 84145; 84443; 85025; 85610; 85730; 87040; 87070; 87077; 87186; 87205; 89220; 93005; 93010; 93306; 94002; 94003; 94640; J0696; J1100; J1650; J1815; J1940; J2310; J2704; J3010; J3370; J3480; J3490; J7050; J7620; P9045

== ENCOUNTER 2022-01-09 11:31 | Inpatient (IN) | payer OTHER ==
[2022-01-09] MEDS ORDERED: Fentanyl 100 MCG/2 ML VIAL ONE (13:21)
[2022-01-09] MEDS ORDERED: Propofol 1,000 MG/100 ML VIAL IV ONE (13:21)
[2022-01-09] MEDS ORDERED: Ondansetron PF 4 MG/2 ML Vial ONE (13:29)
[2022-01-09] MEDS ORDERED: HYDROcodone/Acetaminophen 5/325 mg Tablet ONE (18:47)
[2022-01-09] MEDS ORDERED: Calcium Carbonate 500 MG ChewTAB PO PRN (19:03)
[2022-01-09] MEDS ORDERED: Dextrose 50% Abboject 50 ML SYRINGE SLOW IVP PRN (19:03)
[2022-01-09] MEDS ORDERED: Dextrose 5% in Water 1,000 ML IV PRN (19:03)
[2022-01-09 21:29] VITALS: BMI 77.0
[2022-01-09] MEDS: HumaLOG 300 UNITS/3 ML VIAL SC PRN (21:47)
[2022-01-09] MEDS: Ibuprofen 600 MG TAB PO SCH (21:48)
[2022-01-10] MEDS: Ibuprofen 600 MG TAB PO SCH ×3 (04:18→20:11)
[2022-01-10] MEDS: HumaLOG 300 UNITS/3 ML VIAL SC PRN ×3 (06:09→20:12)
[2022-01-10] MEDS: Levothyroxine Sodium 100 MCG TAB PO SCH (08:34)
[2022-01-10] MEDS: Hydrochlorothiazide 25 MG TAB PO SCH (08:34)
[2022-01-10] MEDS: Lisinopril 10 MG TAB PO SCH (08:35)
[2022-01-10] MEDS: Insulin Glargine 30 UNITS/0.3 ML VIAL SC SCH (08:35)
[2022-01-10] MEDS: Empagliflozin 10 MG TAB PO SCH (08:35)
[2022-01-10] MEDS ORDERED: Enoxaparin Sodium 40 MG/0.4 ML SYRINGE SC SCH (09:00)
[2022-01-10 12:03] LABS: SARS-CoV-2 PCR by NAA Not Detected (NotDetected)
[2022-01-10] MEDS: Acetaminophen 325 MG TAB PO PRN (17:51)
[2022-01-10] MEDS: Enoxaparin Sodium 40 MG/0.4 ML SYRINGE SC SCH (20:11)
[2022-01-11] MEDS: Ibuprofen 600 MG TAB PO SCH ×3 (04:11→20:45)
[2022-01-11] MEDS: HumaLOG 300 UNITS/3 ML VIAL SC PRN ×2 (06:00→16:04)
[2022-01-11] MEDS: Lisinopril 10 MG TAB PO SCH (08:17)
[2022-01-11] MEDS: Hydrochlorothiazide 25 MG TAB PO SCH (08:17)
[2022-01-11] MEDS: Enoxaparin Sodium 40 MG/0.4 ML SYRINGE SC SCH ×2 (08:18→20:46)
[2022-01-11] MEDS: Empagliflozin 10 MG TAB PO SCH (08:18)
[2022-01-11] MEDS: Insulin Glargine 30 UNITS/0.3 ML VIAL SC SCH (08:18)
[2022-01-11] MEDS: Levothyroxine Sodium 100 MCG TAB PO SCH (08:18)
[2022-01-12] MEDS: Ibuprofen 600 MG TAB PO SCH ×3 (04:07→20:58)
[2022-01-12] MEDS: Hydrochlorothiazide 25 MG TAB PO SCH (08:39)
[2022-01-12] MEDS: Levothyroxine Sodium 100 MCG TAB PO SCH (08:39)
[2022-01-12] MEDS: Empagliflozin 10 MG TAB PO SCH (08:39)
[2022-01-12] MEDS: Enoxaparin Sodium 40 MG/0.4 ML SYRINGE SC SCH ×2 (08:39→20:57)
[2022-01-12] MEDS: Lisinopril 10 MG TAB PO SCH (08:39)
[2022-01-12] MEDS: Insulin Glargine 30 UNITS/0.3 ML VIAL SC SCH ×2 (08:43→09:52)
[2022-01-12] MEDS ORDERED: Insulin Glargine 30 UNITS/0.3 ML VIAL SC SCH (09:15)
[2022-01-12] MEDS: HumaLOG 300 UNITS/3 ML VIAL SC PRN (20:58)
[2022-01-13] MEDS: Ibuprofen 600 MG TAB PO SCH ×3 (04:03→20:41)
[2022-01-13] MEDS: HumaLOG 300 UNITS/3 ML VIAL SC PRN ×2 (05:54→20:41)
[2022-01-13] MEDS: Hydrochlorothiazide 25 MG TAB PO SCH (08:30)
[2022-01-13] MEDS: Insulin Glargine 30 UNITS/0.3 ML VIAL SC SCH (08:30)
[2022-01-13] MEDS: Levothyroxine Sodium 100 MCG TAB PO SCH (08:30)
[2022-01-13] MEDS: Empagliflozin 10 MG TAB PO SCH (08:30)
[2022-01-13] MEDS: Lisinopril 10 MG TAB PO SCH (08:30)
[2022-01-13] MEDS: Polyethylene Glycol 3350 17 GM Packet PO SCH (08:31)
[2022-01-13] MEDS: Enoxaparin Sodium 40 MG/0.4 ML SYRINGE SC SCH ×2 (08:31→20:41)
[2022-01-14] MEDS: Ibuprofen 600 MG TAB PO SCH ×3 (04:10→20:15)
[2022-01-14] MEDS: Polyethylene Glycol 3350 17 GM Packet PO SCH (08:02)
[2022-01-14] MEDS: Enoxaparin Sodium 40 MG/0.4 ML SYRINGE SC SCH ×2 (08:02→20:15)
[2022-01-14] MEDS: Insulin Glargine 30 UNITS/0.3 ML VIAL SC SCH (08:02)
[2022-01-14] MEDS: Empagliflozin 10 MG TAB PO SCH (08:02)
[2022-01-14] MEDS: Levothyroxine Sodium 100 MCG TAB PO SCH (08:02)
[2022-01-14] MEDS: Hydrochlorothiazide 25 MG TAB PO SCH (08:02)
[2022-01-14] MEDS: Lisinopril 10 MG TAB PO SCH (08:03)
[2022-01-14] MEDS: Acetaminophen 325 MG TAB PO PRN (08:55)
[2022-01-14 12:49] LABS: Hemoglobin A1c 9.2 % (4.0-6.0)
[2022-01-14] MEDS: HumaLOG 300 UNITS/3 ML VIAL SC PRN (20:21)
[2022-01-15] MEDS: Ibuprofen 600 MG TAB PO SCH ×3 (04:09→21:45)
[2022-01-15] MEDS: Enoxaparin Sodium 40 MG/0.4 ML SYRINGE SC SCH ×2 (08:06→20:00)
[2022-01-15] MEDS: Polyethylene Glycol 3350 17 GM Packet PO SCH (08:06)
[2022-01-15] MEDS: Levothyroxine Sodium 100 MCG TAB PO SCH (08:07)
[2022-01-15] MEDS: Hydrochlorothiazide 25 MG TAB PO SCH (08:07)
[2022-01-15] MEDS: Insulin Glargine 30 UNITS/0.3 ML VIAL SC SCH (08:07)
[2022-01-15] MEDS: Lisinopril 10 MG TAB PO SCH (08:07)
[2022-01-15] MEDS: Empagliflozin 10 MG TAB PO SCH (08:08)
[2022-01-15] MEDS: HumaLOG 300 UNITS/3 ML VIAL SC PRN (20:58)
[2022-01-16] MEDS: HumaLOG 300 UNITS/3 ML VIAL SC PRN ×2 (05:26→12:34)
[2022-01-16] MEDS: Ibuprofen 600 MG TAB PO SCH ×2 (05:27→14:08)
[2022-01-16 08:01] VITALS: TEMP 97.5
[2022-01-16] MEDS: Hydrochlorothiazide 25 MG TAB PO SCH (08:39)
[2022-01-16] MEDS: Insulin Glargine 30 UNITS/0.3 ML VIAL SC SCH (08:39)
[2022-01-16] MEDS: Empagliflozin 10 MG TAB PO SCH (08:39)
[2022-01-16] MEDS: Levothyroxine Sodium 100 MCG TAB PO SCH (08:39)
[2022-01-16] MEDS: Lisinopril 10 MG TAB PO SCH (08:39)
[2022-01-16 08:40] VITALS: BP 127/86
[2022-01-16] MEDS: Polyethylene Glycol 3350 17 GM Packet PO SCH (08:40)
[2022-01-16] MEDS: Enoxaparin Sodium 40 MG/0.4 ML SYRINGE SC SCH (08:40)
[2022-01-16] MEDS ORDERED: Insulin Glargine 30 UNITS/0.3 ML VIAL SC SCH (10:45)
[2022-01-17] MEDS ORDERED: Insulin Glargine 30 UNITS/0.3 ML VIAL SC SCH (09:00)
== END 2022-01-16 16:38 | disposition home or self-care (01) | DRG 563 ==
LOC: ERS 11:31 → T4-B 18:38 → OBSVTOIN 01-15 10:32
PROVIDERS: ADMIT Family Medicine; ATTEND Family Medicine
PROC: 0QSJXZZ Reposition Right Fibula, External Approach (ICD-10-PCS; principal; 2022-01-15)
DX: S82.61XA Displaced fracture of lateral malleolus of right fibula, initial encounter for closed fracture (principal); Q87.11 Prader-Willi syndrome; Z68.45 Body mass index [BMI] 70 or greater, adult; E11.9 Type 2 diabetes mellitus without complications; I10 Essential (primary) hypertension; E78.5 Hyperlipidemia, unspecified; E03.9 Hypothyroidism, unspecified; G47.33 Obstructive sleep apnea (adult) (pediatric); W19.XXXA Unspecified fall, initial encounter; E88.81 Metabolic syndrome and other insulin resistance; F31.9 Bipolar disorder, unspecified; Z20.822 Contact with and (suspected) exposure to COVID-19; Z79.899 Other long term (current) drug therapy; Z79.4 Long term (current) use of insulin; Y92.218 Other school as the place of occurrence of the external cause
CPT/HCPCS: 36415; 36416; 83036; 96372; 96374; 96375; 99152; G0378; J1650; J1815; J2405; J2704; J3010; U0003; U0005

== ENCOUNTER 2022-01-29 10:46 | Outpatient (CLI) | payer OTHER | END 2022-01-29 10:47 | disposition home or self-care (01) | LOC: LABBT 10:46 | PROVIDERS: ATTEND Orthopaedic Surgery | DX: Z20.822 Contact with and (suspected) exposure to COVID-19 (principal) | CPT/HCPCS: U0003; U0005 ==

== ENCOUNTER 2022-02-01 06:10 | Day surgery (SDC) | payer OTHER ==
[2022-01-30 13:21] VITALS: BMI 70.8
[2022-02-01] MEDS ORDERED: Sodium Chloride 0.9% 100 ML ONE (07:06)
[2022-02-01] MEDS ORDERED: CEFAZOLIN 2 GM VIAL ONE (07:06)
[2022-02-01] MEDS ORDERED: fentaNYL Citrate/PF 100 MCG/2 ML SYRINGE ONE ×2 (07:31→08:20)
[2022-02-01] MEDS ORDERED: Famotidine/PF 20 mg/2ml Vial ONE (07:32)
[2022-02-01] MEDS ORDERED: Midazolam HCl 2 mg/2 ml Vial ONE (07:43)
[2022-02-01] MEDS ORDERED: Ondansetron PF 4 MG/2 ML Vial ONE (07:44)
[2022-02-01] MEDS ORDERED: Rocuronium Bromide 10 MG/ML (10ML VIAL) ONE (07:44)
[2022-02-01] MEDS ORDERED: Ketorolac Tromethamine 30 MG/ML VIAL ONE (07:44)
[2022-02-01] MEDS ORDERED: PROPOFOL 200 MG/20 ML VIAL ONE (07:44)
[2022-02-01] MEDS ORDERED: Dexamethasone 20 MG/5 ML VIAL ONE (07:44)
[2022-02-01] MEDS ORDERED: Lidocaine 1% PF 5 ML VIAL ONE (07:44)
[2022-02-01] MEDS ORDERED: Glycopyrrolate 0.2 MG/ML 5 ML SYRINGE ONE (07:44)
[2022-02-01 08:01] LABS: Anion Gap 16 mmol/L (10-20); BUN (Urea Nitrogen) 13 mg/dL (8.9-20.6); Calc. Creatinine Clearance 416 mL/min (70-130); Calcium 9.6 mg/dL (7.8-10.44); Carbon Dioxide 20 mmol/L (22-29); Chloride 102 mmol/L (98-107); Glucose 129 mg/dL (70-105); Potassium 4.4 mmol/L (3.5-5.1); Sodium 134 mmol/L (136-145)
[2022-02-01] MEDS ORDERED: Bupivacaine PF 0.5% 30 ML VIAL ONE (08:23)
[2022-02-01] MEDS ORDERED: hydrALAZINE 20 MG/ML VIAL ONE (09:31)
[2022-02-01] MEDS ORDERED: HYDROcodone/Acetaminophen 5/325 mg Tablet ONE (10:46)
== END 2022-02-01 11:57 | disposition home or self-care (01) ==
LOC: SDC 06:10
PROVIDERS: ATTEND Orthopaedic Surgery
PROC: 0QSJ04Z Reposition Right Fibula with Internal Fixation Device, Open Approach (ICD-10-PCS; principal; 2022-02-01)
DX: S82.61XA Displaced fracture of lateral malleolus of right fibula, initial encounter for closed fracture (principal); E66.01 Morbid (severe) obesity due to excess calories; Z68.45 Body mass index [BMI] 70 or greater, adult; Z79.4 Long term (current) use of insulin; Z79.84 Long term (current) use of oral hypoglycemic drugs; Z79.890 Hormone replacement therapy; Z79.899 Other long term (current) drug therapy; W01.0XXA Fall on same level from slipping, tripping and stumbling without subsequent striking against object, initial encounter; Y92.219 Unspecified school as the place of occurrence of the external cause
CPT/HCPCS: 36416; 76000; 80048; C1713; J0360; J1100; J1885; J2250; J2405; J2704; J3490; S0020; S0028

== ENCOUNTER 2022-04-07 09:33 | Emergency (ER) | payer OTHER ==
[2022-04-07] MEDS ORDERED: Ketorolac Tromethamine 30 MG/ML VIAL ONE (10:45)
== END 2022-04-07 11:10 | disposition home or self-care (01) ==
LOC: ERS 09:33
DX: J03.90 Acute tonsillitis, unspecified (principal); E11.9 Type 2 diabetes mellitus without complications; E03.9 Hypothyroidism, unspecified; I10 Essential (primary) hypertension
CPT/HCPCS: 87081; 87430; 96372; 99283; J1885

== ENCOUNTER 2022-04-11 11:19 | Emergency (ER) | payer OTHER | END 2022-04-11 14:06 | disposition home or self-care (01) | LOC: ERS 11:19 | DX: R07.9 Chest pain, unspecified (principal); E11.9 Type 2 diabetes mellitus without complications; I10 Essential (primary) hypertension; E03.9 Hypothyroidism, unspecified | CPT/HCPCS: 71045; 93005 ==

== ENCOUNTER 2023-06-30 12:25 | Emergency (ER) | payer OTHER ==
[2023-06-30] MEDS ORDERED: diphenhydrAMINE 25 MG CAP ONE (14:20)
== END 2023-06-30 14:46 | disposition home or self-care (01) ==
LOC: ERS 12:25
DX: H10.89 Other conjunctivitis (principal); L03.213 Periorbital cellulitis; B96.89 Other specified bacterial agents as the cause of diseases classified elsewhere; E11.9 Type 2 diabetes mellitus without complications; I10 Essential (primary) hypertension; E03.9 Hypothyroidism, unspecified; E66.9 Obesity, unspecified; Z79.4 Long term (current) use of insulin; Z79.899 Other long term (current) drug therapy
CPT/HCPCS: 99283

== ENCOUNTER 2023-12-31 09:50 | Emergency (ER) | payer OTHER ==
[2023-12-31] MEDS ORDERED: Ibuprofen 800 MG TAB ONE (11:53)
== END 2023-12-31 13:52 | disposition home or self-care (01) ==
LOC: ERS 09:50
DX: S86.912A Strain of unspecified muscle(s) and tendon(s) at lower leg level, left leg, initial encounter (principal); I10 Essential (primary) hypertension; E11.9 Type 2 diabetes mellitus without complications; E03.9 Hypothyroidism, unspecified; W19.XXXA Unspecified fall, initial encounter; Z79.4 Long term (current) use of insulin; Z79.899 Other long term (current) drug therapy

== ENCOUNTER 2025-05-18 13:54 | Emergency (ER) | payer OTHER ==
[2025-05-18] MEDS ORDERED: Acetaminophen 500 MG TAB ONE (14:13)
[2025-05-18] MEDS ORDERED: Ibuprofen 200 MG TAB ONE (14:13)
== END 2025-05-18 15:18 | disposition home or self-care (01) ==
LOC: ERS 13:54
DX: S93.401A Sprain of unspecified ligament of right ankle, initial encounter (principal); I10 Essential (primary) hypertension; E11.9 Type 2 diabetes mellitus without complications; W01.0XXA Fall on same level from slipping, tripping and stumbling without subsequent striking against object, initial encounter; Y92.091 Bathroom in other non-institutional residence as the place of occurrence of the external cause; Z79.899 Other long term (current) drug therapy; Z55.6 Problems related to health literacy
CPT/HCPCS: 99283

== ENCOUNTER 2025-06-24 10:55 | Emergency (ER) | payer OTHER ==
[2025-06-24 12:30] LABS: #Basophils 0.07 10x3/uL (0.0-0.2); #Eosinophils 0.26 10x3/uL (0.0-0.7); #Monocytes 0.73 10x3/uL (0.11-0.59); #Neutrophils 4.15 10x3/uL (1.40-6.50); %Basophils 1.0 % (0.0-1.0); %Eosinophils 3.6 % (0.0-10.0); %Lymphocytes 27.9 % (21.0-51.0); %Monocytes 10.0 % (0.0-10.0); %Neutrophils 57.1 % (42.0-75.0); Hematocrit 51.7 % (42.0-52.0); Hemoglobin 15.3 g/dL (14.0-18.0); Mean Corpuscular Hemoglobin 23.4 pg (27.0-31.0); Mean Corpuscular Volume 78.9 fL (78.0-98.0); Platelet Count 189 10x3/uL (130-400); Red Blood Cell (RBC) Count 6.55 mill/uL (4.70-6.10); White Blood Cell (WBC) Count 7.27 10x3/uL (4.8-10.8)
[2025-06-24 12:33] LABS: Anion Gap 16 mmol/L (10-20); BUN (Urea Nitrogen) 10 mg/dL (8.9-20.6); Calc. Creatinine Clearance 0 mL/min (70-130); Carbon Dioxide 27 mmol/L (22-29); Chloride 100 mmol/L (98-107); Potassium 3.9 mmol/L (3.5-5.1); Sodium 139 mmol/L (136-145)
[2025-06-24 12:34] LABS: ALT (SGPT) 15 U/L (Less than 45); AST (SGOT) 22 U/L (11-34); Albumin 2.9 g/dL (3.1-4.5); Alkaline Phosphatase 119 U/L (40-110); Bilirubin, Total 0.9 mg/dL (0.3-1.2); Calcium 9.4 mg/dL (7.8-10.44); Globulin 4.1 g/dL (2.4-3.5); Glucose 187 mg/dL (70-105)
[2025-06-24 13:23] LABS: Anisocytosis SLIGHT = 6-15 cells HPF (0-5); Macrocytosis SLIGHT = 6-15 cells HPF (0-5); Microcytosis SLIGHT = 6-15 cells HPF (0-5); Platelet Adequacy Comment Platelets Normal; Polychromasia SLIGHT = 2-3 cells HPF (0-2)
== END 2025-06-24 13:12 | disposition home or self-care (01) ==
LOC: ERS 10:55
DX: I10 Essential (primary) hypertension (principal); E11.9 Type 2 diabetes mellitus without complications; E03.9 Hypothyroidism, unspecified; Z79.4 Long term (current) use of insulin; Z79.899 Other long term (current) drug therapy
CPT/HCPCS: 36415; 71045; 80053; 84484; 85025; 93005